=== PATIENT | female | born 1975 | race Caucasian/White ===

== ENCOUNTER 2017-01-17 14:29 | Emergency (ER) | payer MEDICAID, OTHER ==
[~2017-01-17] VITALS: Wt 68.0 kg
[~2017-01-17 14:29] MED LIST: NO MEDS TAKEN
--- NOTE | 2017-01-17 15:00 | ERD ---
ER Documentation Chief Complaint Date/Time DATE: 01/17/17 TIME: 14:56 Chief Complaint right ear pain for the past few days. sore throat and cough for a few days HPI This 41-year-old Yoruba-speaking female presents to emergency department today with right-sided ear pain sore throat cough nasal congestion for the past 2 days. Patient denies any change in hearing, reports cough is productive for phlegm. Denies smoking, patient denies nausea, vomiting, fever, or chills. Patient states she is able to eat and drink without deficit reports pain with swallowing. She is taking [id number] medication for symptomatic relief, denies history of seasonal allergies or asthma. Patient has not taken antibiotic for the last 3 months. ROS All systems reviewed and are negative except as per history of present illness. Medications Home Meds Active Scripts Ibuprofen* (Motrin*) 600 Mg Tab, 600 MG PO Q6, #30 TAB Prov:CYN,DEVI 01/17/17 Dextromethorphan Hb-Promethazine Hcl* (Promethazine DM* Syrup) 473 Ml Syrup, 5 ML PO Q6 for 7 Days, ML Prov:CYN,DEVI 01/17/17 Reported Medications [No Meds Taken] No Conflict Check 12/25/11 Allergies Allergies: Coded Allergies: No Known Allergies (Verified Allergy, Mild, 12/25/11) PMhx/Soc History of Surgery: No Anesthesia Reaction: No Hx Neurological Disorder: No Hx Respiratory Disorders: No Hx Cardiac Disorders: No Hx Psychiatric Problems: No Hx Miscellaneous Medical Probl: No Hx Alcohol Use: No Hx Substance Use: No Hx Tobacco Use: No Physical Exam Vitals Vital Signs Date Time Temp Pulse Resp B/P Pulse Ox O2 Delivery O2 Flow Rate FiO2 01/17/17 14:47 97.9 91 20 127/84 99 Vitals stable nursing notes reviewed Physical Exam Const: No acute distress Head: Atraumatic Eyes: Normal Conjunctiva, PERRLA ENT: Bilateral tympanic membranes are translucent, positive light reflex, no air-fluid level, auditory canals are clear, nasal mucosa edematous on the right , turbinates S4, clear mucus noted, pharynx inflamed, without lesion ulcers or blisters on hard palate, uvula rises and falls with pronation, tongue is midline Neck: Full range of motion..~ No meningismus. No cervical chain nodes Resp: Chest rises and falls symmetrically clear to auscultation bilaterally, no rales wheezes or rhonchi Cardio: Regular rate and rhythm, S1-S2, no S3, no S4 no murmurs Abd: Skin: Back: Ext: Neur: Awake and alert Psych: Normal Mood and Affect Procedures/MDM This pleasant 41-year-old female presenting to the emergency department today for otalgia and pharyngitis. Physical exam negative for acute bacteria causation, tympanic membranes non-erythemic without air-fluid level. Pharynx without exudate, patient is afebrile. Viral illness likely nurse practitioner prescribes symptomatic treatment with Promethazine DM and Motrin. Take as directed, candidate for outpatient management follow-up with primary care physician, I feel the patient is stable for discharge at this time. I have discussed results, examination findings, the treatment plan with the patient and family present prior to discharge. Indications for emergent reevaluation, side effects of medication were also discussed. All questions were answered. Patient verbalizes understanding and agrees with plan of care. Departure Diagnosis: Primary Impression: Viral upper respiratory illness Condition: Colten DEVI ADDISON Jan 17, 2017 15:00
[2017-01-17] MEDS ORDERED: D-ME473S2 PO (15:02)
[2017-01-17] MEDS ORDERED: IBUP-1542 PO (15:03)
== END 2017-01-17 15:04 | disposition home or self-care (01) ==
LOC: E/R 14:29
DX: J06.9 Acute upper respiratory infection, unspecified (principal)
CPT/HCPCS: 99283